=== PATIENT | female | born 1965 | race American Indian/Alaskan Native ===

== ENCOUNTER 2017-12-13 07:57 | Emergency (ER) | payer SELFPAY ==
[2017-12-13 08:09] VITALS: BP 123/58
[2017-12-13] MEDS ORDERED: TORADOL IM ONE (09:57)
--- NOTE | 2017-12-13 09:59 | Emergency Department Report ---
ED Extremity Problem HPI - General Chief complaint: Extremity Problem,Nontraumatic Stated complaint: LEG PAIN Time Seen by Provider: 12/13/17 09:39 Source: patient Mode of arrival: Wheelchair Limitations: No Limitations - History of Present Illness Initial comments: Patient is a 52-year-old female with chronic sciatica is been taking [place] gabapentin and tizanidine for pain and states is not helping. Patient is homeless and has been driving from city to city "looking for a place to live". Patient was in the emergency department looking for pain meds. Patient states she has 10 out of 10 pain however she is sitting comfortably in the room while she gives her history. Patient denies any urinary retention and fecal incontinence trauma fever nausea vomiting at this time. States the pain is in the lower back of the left - Related Data Previous Rx's Medication Instructions Recorded Last Taken Type Ketorolac [Toradol] 10 mg PO Q6H PRN #14 tablet 12/13/17 Unknown Rx Allergies Allergy/AdvReac Type Severity Reaction Status Date / Time Penicillins Allergy Anaphylaxis Verified 12/13/17 08:10 Sulfa (Sulfonamide Allergy Rash Verified 12/13/17 08:09 Antibiotics) sulfamethoxazole Allergy Rash Verified 12/13/17 08:10 [From Bactrim] trimethoprim [From Bactrim] Allergy Rash Verified 12/13/17 08:10 metoclopramide [From Reglan] AdvReac Unknown Verified 12/13/17 08:10 ED Review of Systems ROS: Stated complaint: LEG PAIN Other details as noted in HPI Comment: All other systems reviewed and negative ED Past Medical Hx - Past Medical History Hx Hypertension: Yes Hx Diabetes: Yes Additional medical history: Kidney transplant 08/2011 - Surgical History Past Surgical History?: Yes Additional Surgical History: Kidney transplant 08/2011, hysterectomy - Social History Smoking Status: Never Smoker Substance Use Type: None - Medications Home Medications: Home Medications Medication Instructions Recorded Confirmed Last Taken Type Ketorolac [Toradol] 10 mg PO Q6H PRN #14 tablet 12/13/17 Unknown Rx ED Physical Exam - General Limitations: No Limitations General appearance: alert, in no apparent distress - Head Head exam: Present: atraumatic, normocephalic - Eye Eye exam: Present: normal appearance - ENT ENT exam: Present: mucous membranes moist - Neck Neck exam: Present: normal inspection - Respiratory Respiratory exam: Present: normal lung sounds bilaterally. Absent: respiratory distress, wheezes - Cardiovascular Cardiovascular Exam: Present: regular rate, normal rhythm. Absent: systolic murmur, diastolic murmur, rubs, gallop - GI/Abdominal GI/Abdominal exam: Present: soft, normal bowel sounds. Absent: distended, tenderness, guarding - Extremities Exam Extremities exam: Present: normal inspection, full ROM - Back Exam Back exam: Present: normal inspection, full ROM, tenderness (left) - Neurological Exam Neurological exam: Present: alert, oriented X3 - Psychiatric Psychiatric exam: Present: normal affect, normal mood - Skin Skin exam: Present: warm, dry, intact, normal color. Absent: rash ED Course Vital Signs 12/13/17 08:03 Temperature 98 F Pulse Rate 74 Respiratory 18 Rate Blood Pressure 123/58 O2 Sat by Pulse 98 Oximetry ED Medical Decision Making - Medical Decision Making Patient was deemed not medical emergency however she didn't pay the hospital co- pay. I did explain to the patient that I was unable to give her narcotics for this condition. Patient will be given a Toradol shot and be discharged home. Critical care attestation.: If time is entered above; I have spent that time in minutes in the direct care of this critically ill patient, excluding procedure time. ED Disposition Clinical Impression: Sciatica Qualifiers: Laterality: left Qualified Code(s): M54.32 - Sciatica, left side Disposition: MED SCREENING EXAM-CONT Is pt being admited?: No Does the pt Need Aspirin: No Condition: Stable Instructions: Lumbar Radiculopathy (ED) Prescriptions: Ketorolac [Toradol] 10 mg PO Q6H PRN #14 tablet PRN Reason: Pain Referrals: SEBASTIEN MIX MD [Other] - 3-5 Days
== END 2017-12-13 10:06 | disposition home or self-care (01) ==
LOC: ED 07:57
DX: M54.32 Sciatica, left side (principal); I10 Essential (primary) hypertension; E11.9 Type 2 diabetes mellitus without complications; Z90.710 Acquired absence of both cervix and uterus; Z88.0 Allergy status to penicillin; Z88.2 Allergy status to sulfonamides
CPT/HCPCS: 96372; 99283; J1885